=== PATIENT | male | born 1930 | race Caucasian/White ===

== ENCOUNTER 2020-01-10 09:49 | Outpatient (CLI) | payer MEDICARE ==
[2020-01-10 11:39] LABS: CREATININE 1.05 mg/dL (0.7-1.3)
[2020-01-10] MEDS ORDERED: OMNIPAQUE 350 MG/ML, 100ML BOTTLE ONE (12:39)
== END 2020-01-10 23:59 | disposition home or self-care (01) ==
LOC: CVU 09:49 → RAD 23:59
PROVIDERS: ATTEND Internal Medicine Cardiovascular Disease
DX: I65.23 Occlusion and stenosis of bilateral carotid arteries (principal); I08.0 Rheumatic disorders of both mitral and aortic valves; I70.0 Atherosclerosis of aorta; I70.8 Atherosclerosis of other arteries; K80.20 Calculus of gallbladder without cholecystitis without obstruction; N28.1 Cyst of kidney, acquired; K57.30 Diverticulosis of large intestine without perforation or abscess without bleeding; N32.3 Diverticulum of bladder; M47.812 Spondylosis without myelopathy or radiculopathy, cervical region; M47.816 Spondylosis without myelopathy or radiculopathy, lumbar region; I10 Essential (primary) hypertension; E78.5 Hyperlipidemia, unspecified; N40.0 Benign prostatic hyperplasia without lower urinary tract symptoms; E11.9 Type 2 diabetes mellitus without complications; Z98.1 Arthrodesis status
CPT/HCPCS: 36415; 71275; 74174; 82565; 93005; 93880; 94060; Q9967

== ENCOUNTER 2020-01-17 10:01 | Inpatient (IN) | payer MEDICARE ==
[~2020-01-17] VITALS: Ht 180.3 cm; Wt 92.8 kg
[2020-01-17] MEDS ORDERED: SODIUM CHLORIDE 0.9% 1,000 ML IV ONE (10:32)
[2020-01-17 10:41] VITALS: BP 152/64
[2020-01-17] MEDS ORDERED: PLEASE ENTER HEIGHT AND WEIGHT MC SCH (11:00)
[2020-01-17] MEDS ORDERED: ONDANSETRON 2MG/ML, 2ML IVPush PRN (11:00)
[2020-01-17] MEDS ORDERED: CHLORHEXIDINE 15 ML UDC MM PRN (11:00)
[2020-01-17] MEDS ORDERED: CHLORHEXIDINE 15 ML UDC ONE (11:19)
[2020-01-17] MEDS ORDERED: FINA5TAB4 PO (11:23)
[2020-01-17] MEDS ORDERED: ASPI-496 PO (11:23)
[2020-01-17] MEDS ORDERED: METO50TA82 PO (11:23)
[2020-01-17] MEDS ORDERED: MULT-658 PO (11:23)
[2020-01-17] MEDS ORDERED: CARB200T4 PO ×2 (11:23)
[2020-01-17] MEDS ORDERED: GABA-827 PO (11:23)
[2020-01-17] MEDS ORDERED: ATOR40TA PO (11:23)
[2020-01-17] MEDS ORDERED: CYAN1TAB18 PO (11:23)
[2020-01-17] MEDS ORDERED: LISI5TAB7 PO (11:23)
[2020-01-17] MEDS ORDERED: METF500T17 PO (11:23)
[2020-01-17] MEDS ORDERED: OMEG1CAP23 PO (11:23)
[2020-01-17 11:34] LABS: BASOPHILS % (AUTO) 0 % (0-1); EOSINOPHILS # (AUTO) 0.44 x10^3/uL (0-0.4); EOSINOPHILS % (AUTO) 7 % (1-7); LYMPHOCYTES # (AUTO) 1.59 x10^3/uL (1-3.4); LYMPHOCYTES % (AUTO) 26 % (22-44); MD NO; MEAN CORPUSCULAR HEMOGLOBIN 32.8 pg (27.5-34.5); MEAN CORPUSCULAR VOLUME 99.3 fL (81-97); MONOCYTES % (AUTO) 8 % (2-9); NEUTROPHILS # (AUTO) 3.68 x10^3/uL (1.8-6.8); NEUTROPHILS % (AUTO) 59 % (42-75); PLATELET COUNT 189 x10^3/uL (130-400); RED BLOOD COUNT 3.54 x10^6/uL (4.38-5.82); RED CELL DISTRIBUTION WIDTH 13.4 % (9.4-14.8)
[2020-01-17 11:41] LABS: INTERNATIONAL NORMALIZED RATIO 1.07 (0.93-1.1); PROTHROMBIN TIME 11.4 Seconds (9.6-11.5)
[2020-01-17 11:44] LABS: ALANINE AMINOTRANSFERASE 25 U/L (12-78); ALBUMIN 3.3 g/dL (3.4-5.0); ANION GAP 6 mmol/L (5-15); CALCIUM 8.4 mg/dL (8.5-10.1); CHLORIDE 108 mmol/L (98-107); CREATININE 0.98 mg/dL (0.7-1.3)
[2020-01-17 11:48] LABS: ALKALINE PHOSPHATASE 95 U/L (45-117); BILIRUBIN,TOTAL 0.4 mg/dL (0.2-1.0)
[2020-01-17] MEDS ORDERED: CEFAZOLIN 1,000 MG ONE (13:09)
[2020-01-17] MEDS ORDERED: PROPOFOL 10 MG/ML, 20ML ONE (13:09)
[2020-01-17] MEDS ORDERED: ONDANSETRON 2MG/ML, 2ML ONE (13:09)
[2020-01-17] MEDS ORDERED: FENTANYL PF 250 MCG/5ML ONE (13:12)
[2020-01-17] MEDS ORDERED: PROTAMINE SULFATE 10 MG/ML, 5ML ONE (14:08)
[2020-01-17] MEDS ORDERED: SUCCINYLCHOLINE 20 MG/ML, 10ML ONE (14:23)
[2020-01-17] MEDS ORDERED: ROCURONIUM 10MG/ML,5ML ONE (14:23)
[2020-01-17] MEDS ORDERED: HEPARIN 1,000 UNITS/ML, 10ML ONE ×2 (14:23)
[2020-01-17] MEDS ORDERED: hydrALAzine 20 MG/ML, 1ML IVPush PRN (14:30)
[2020-01-17] MEDS ORDERED: ACETAMINOPHEN 325 MG TABLET PO PRN (14:30)
[2020-01-17] MEDS ORDERED: HYDROcodone/APAP 5/325 TABLET PO PRN (14:30)
[2020-01-17] MEDS ORDERED: LABETALOL 20 MG/4 ML IVPush PRN (14:30)
[2020-01-17] MEDS ORDERED: CLOPIDOGREL 300 MG TABLET PO ONE (14:30)
[2020-01-17] MEDS ORDERED: hydrALAzine 20 MG/ML, 1ML ONE (14:46)
[2020-01-17] MEDS ORDERED: CLOPIDOGREL 300 MG TABLET ONE (15:01)
[2020-01-17 16:44] VITALS: BP 125/59
[2020-01-17] MEDS ORDERED: MAALOX/HYOSCYAMINE/LIDOCAINE 45 ML BTL PO PRN (17:00)
[2020-01-17 17:10] VITALS: BP 126/67
[2020-01-17] MEDS: GABAPENTIN 400 MG CAPSULE PO SCH ×2 (17:21→20:36)
[2020-01-17 19:50] VITALS: BP 136/58
[2020-01-17] MEDS: METOPROLOL TARTRATE 25 MG TAB PO SCH (20:36)
[2020-01-17] MEDS: CARBAMAZEPINE 200 MG TABLET PO SCH (20:53)
[2020-01-17] MEDS ORDERED: ATORVASTATIN 40 MG TABLET PO SCH (21:00)
[2020-01-18 01:22] VITALS: BP 137/69
[2020-01-18 05:38] LABS: ANION GAP 6 mmol/L (5-15); CALCIUM 8.5 mg/dL (8.5-10.1); CHLORIDE 107 mmol/L (98-107)
[2020-01-18 06:34] LABS: MD YES; MEAN CORPUSCULAR HEMOGLOBIN 33.2 pg (27.5-34.5); MEAN CORPUSCULAR HGB CONC 33.4 g/dL (33.2-36.2); MEAN CORPUSCULAR VOLUME 99.4 fL (81-97); MEAN PLATELET VOLUME 8.3 fL (7.4-10.4); PLATELET COUNT 152 x10^3/uL (130-400); RED BLOOD COUNT 3.49 x10^6/uL (4.38-5.82); RED CELL DISTRIBUTION WIDTH 13.7 % (9.4-14.8)
[2020-01-18 06:36] LABS: BASOS#(MANUAL) 0.07 x10^3/uL (0-0.1); BASOS% (MANUAL) 1 % (0-1); EOS#(MANUAL) 0.21 x10^3/uL (0.0-0.4); EOS% (MANUAL) 3 % (1-7); LYMPH#(MANUAL) 1.59 x10^3/uL (1-3.4); LYMPHS% (MANUAL) 23 % (22-44); MONOS#(MANUAL) 0.41 x10^3/uL (0.3-2.7); MONOS% (MANUAL) 6 % (2-9); SEG#(MANUAL) 4.62 x10^3/uL (1.8-6.8); SEGS% (MANUAL) 67 % (42-75)
[2020-01-18 06:38] LABS: <PLATELET ESTIMATE> ADEQUATE; <PLT MORPHOLOGY> NORMAL PLT MORPH
[2020-01-18 06:40] LABS: <RBC MORPHOLOGY> NORMAL
[2020-01-18] MEDS ORDERED: ACET325T26 PO (08:32)
[2020-01-18] MEDS ORDERED: CLOP75TA PO (08:32)
[2020-01-18 08:34] VITALS: BP 163/79
[2020-01-18] MEDS: CARBAMAZEPINE 200 MG TABLET PO SCH (08:37)
[2020-01-18] MEDS: METOPROLOL TARTRATE 25 MG TAB PO SCH (08:37)
[2020-01-18] MEDS: GABAPENTIN 400 MG CAPSULE PO SCH (08:38)
[2020-01-18] MEDS ORDERED: MULTIVITAMIN 1 TABLET PO SCH (09:00)
[2020-01-18] MEDS ORDERED: CLOPIDOGREL 75 MG TABLET PO SCH (09:00)
[2020-01-18] MEDS ORDERED: ASPIRIN 81 MG TABLET EC PO SCH ×2 (09:00)
[2020-01-18] MEDS ORDERED: FINASTERIDE 5 MG TABLET PO SCH (09:00)
[2020-01-18] MEDS ORDERED: CARBAMAZEPINE 200 MG TABLET PO SCH (09:00)
[2020-01-18] MEDS ORDERED: LISINOPRIL 10 MG TABLET PO SCH (09:00)
[2020-01-18] MEDS ORDERED: metFORMIN 500 MG TABLET PO SCH (09:00)
== END 2020-01-18 13:04 | disposition home or self-care (01) | DRG 266 ==
LOC: ORIP 10:01 → 5SO 16:27
PROVIDERS: ADMIT Internal Medicine Cardiovascular Disease; ATTEND Internal Medicine Cardiovascular Disease
PROC: 02RF38Z Replacement of Aortic Valve with Zooplastic Tissue, Percutaneous Approach (ICD-10-PCS; principal; 2020-01-17)
PROC: B24BZZ4 Ultrasonography of Heart with Aorta, Transesophageal (ICD-10-PCS; 2020-01-17)
PROC: B310YZZ Fluoroscopy of Thoracic Aorta using Other Contrast (ICD-10-PCS; 2020-01-17)
DX: I35.0 Nonrheumatic aortic (valve) stenosis (principal); Z00.6 Encounter for examination for normal comparison and control in clinical research program; I50.33 Acute on chronic diastolic (congestive) heart failure; I11.0 Hypertensive heart disease with heart failure; E78.5 Hyperlipidemia, unspecified; E11.9 Type 2 diabetes mellitus without complications
CPT/HCPCS: 33361; 36415; 80048; 80053; 82962; 83880; 85025; 85347; 85610; 85730; 86850; 86900; 86923; 93005; 93306; 93312; 93321; 93325; 93355; 93356; C1760; C1769; C1894; G0378; J0690; J1644; J2405; J2704; J2720; J3010; J0330; J0360; Q9967

== ENCOUNTER → 2021-02-12 | Outpatient (CLI) | payer MEDICARE ==
[~2021-02-12] MED LIST: ACET325T26 PO; ASPI-496 PO; ATOR40TA PO; CARB200T4 PO; CLOP75TA PO; CYAN1TAB18 PO; FINA5TAB4 PO; GABA-827 PO; LISI5TAB7 PO; METF500T17 PO; METO50TA82 PO; MULT-658 PO; OMEG1CAP23 PO
== END | disposition home or self-care (01) ==
LOC: CVU 10:27
PROVIDERS: ATTEND Internal Medicine Cardiovascular Disease
DX: Z01.810 Encounter for preprocedural cardiovascular examination (principal); I05.1 Rheumatic mitral insufficiency; I11.9 Hypertensive heart disease without heart failure; R06.02 Shortness of breath; I65.29 Occlusion and stenosis of unspecified carotid artery
CPT/HCPCS: 93306